=== PATIENT | male | born 1945 | race Caucasian/White ===

== ENCOUNTER → 2021-04-19 10:00 | Outpatient (CLI) | payer MEDICARE, SELFPAY ==
--- NOTE | ~2021-04-19 | XR_ITS ---
EXAMINATION: XR shoulder RT min 2V, XR humerus RT EXAM DATE: 04/19/2021 10:43 INDICATION: Pain in right shoulder TECHNIQUE: The following right shoulder projections obtained: frontal projection with internal rotati on, frontal projection with external rotation, Grashey, and axillary (4+ views). 2 orthogonal projec tions right humerus. There are no prior studies for comparison. FINDINGS: No evidence of right shoulder rotator cuff calcific tendinosis. There is moderate to sev ere glenohumeral joint, mild to moderate acromioclavicular joint primary osteoarthritis. There are no acute fractures or dislocations identified. There is no subcutaneous gas. The soft tissue is unrem arkable. There are no radiopaque foreign bodies. IMPRESSION: 1. Right humeral, shoulder exam without acute osseous findings. 2. 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 Reviewed, dictated and finalized at location . TYPE MECHANIC IMPRESSION: 1. Right humeral, shoulder exam without acute osseous findings. 2. 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
--- NOTE | ~2021-04-19 | XR_ITS ---
[id number] DATE: 04/19/2021 10:43 INDICATION: Right pleuritic chest pain TECHNIQUE: PA chest. 3 views of the right ribs. COMPARISON: None FINDINGS: There is diffuse osteopenia. There is severe osteoarthritic change at the right glenohumeral joint with evidence of rotator cuff a trophy. Osteoarthritic changes also apparently present at the minimally imaged left glenohumeral join t. There is a minimally displaced linear fracture through the anterolateral aspect of the right fourth r ib. No other definite rib fractures identified. Normal heart size. Aortic arch calcification. There is old pulmonary granulomatous disease. No pulmon rosemary infiltrate or consolidation, pleural effusion or pulmonary vascular congestion or pneumothorax is detected. IMPRESSION: No displaced linear fracture through the anterolateral right fourth rib Osteopenia Severe osteoarthritis at right glenohumeral joint, probable left glenohumeral osteoarthritis Right rotator cuff atrophy Reviewed, dictated and finalized at [facility]. Reviewed, dictated and finalized at location [facility]. [employer] IMPRESSION: No displaced linear fracture through the anterolateral right fourth rib Osteopenia Severe osteoarthritis at right glenohumeral joint, probable left glenohumeral o steoarthritis Right rotator cuff atrophy
== END ==
PROVIDERS: PCP Family Medicine; Visit Provider Physician Assistant Medical
DX: R07.81 Pleurodynia (principal); M19.011 Primary osteoarthritis, right shoulder
CPT/HCPCS: 71101; 73030; 73060

== ENCOUNTER 2023-03-06 09:09 | Outpatient (CLI) | payer MEDICARE, SELFPAY ==
--- NOTE | 2023-03-15 20:01 | WPDSLEEPSTUD ---
Sleep Study Date of Study: 03/06/23 Ordering Provider: Alfa Luz MD Interpreting Physician: Viji Estrada MD Sleep Study Type: Split Polysomnogram Height: 1.68 m Weight: 113.398 kg Body Mass Index: 40.3 Neck Circumference (inches): 16.5 [place] Bottom: 6 Reason for Sleep Study Obstructive sleep apnea, has used CPAP since 1998; restless sleep with frequent awakenings at night, * 03/15/1999- basic sleep study with an apnea hypopnea index of 72.5 and desaturation to 72%. Sleep History Mainor Dukes Jr is a 77-year-old man with obstructive sleep apnea on CPAP for years. He used PAP up until the night of this study. He occasionally wakes at night with heartburn, belching or coughing.??He frequently snores, and frequently snores loudly enough that others complain. He occasionally has trouble sleeping when he has a cold. He rarely wakes up gasping for breath during the night. He frequently has breathing problems at night. He occasionally sweats excessively at night. He rarely notices his heart pounding or beating irregularly during the night. He occasionally falls asleep during the day. He rarely falls asleep involuntarily, rarely falls asleep while driving. He never experiences loss of muscle tone with strong emotion. He never has daytime difficulty at work due to excessive sleepiness. He never feels paralyzed on waking or falling asleep. He never experiences vivid dreams upon waking or falling asleep. He never feels afraid of going to sleep. He rarely has nightmares. He occasional recalls his dreams. He occasionally has thoughts racing through his mind. He rarely feels sad or depressed. He occasionally feels anxiety. He frequently notices parts of his body jerk. He frequently kicks during the night. He occasionally feels crawling or aching feelings in his legs. He frequently feels leg pain at night. He rarely has morning jaw pain, never grinds his teeth at night. He never feels bothered by pain during the day, rarely awakened by pain during the night. He occasionally wakes up feeling stiff in the morning, and he occasionally wakes feeling sore or achy. He occasionally awakens with pain in his neck, spine, or joints. Normal bedtime is between 11:00 p.m. and midnight, falling asleep within 15 minute, typically waking up between 4 and 5 times during the night to go to the bathroom and get a sip of water. He wakes the morning by 8:00 a.m.. He keeps the summer schedule on weekends, may sleep 1 extra hour. He estimates getting between 5 and 6 hours of sleep at night. He takes an occasional nap in the day, and may feel refreshed afterwards following a 10-15 minute nap. Habits:??Tobacco: former smoker, quit 20 years ago Caffeine: he drinks coffee in the mornings. 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 HTN (hypertension), benign MRSA (methicillin resistant Staphylococcus aureus) septicemia Obesity (BMI 30-39.9) Obstructive sleep apnea Septic arthritis of knee Septic arthritis of shoulder, right Surgical History Surgical History History of cataract extraction (~2004) Hx of cholecystectomy (~1979) Family History Family History Father Thyroid dysfunction Mother Hypertension Thyroid dysfunction Social History Social History Smoking status: Former smoker Smoking end date: 04/02/02 Alcohol intake: current Lack of Transportation: No Lack of Food: Never True Current Housing: I Have Housing Concerned About Future Housing: No Difficulty Paying Gas/Electric Bills: No Difficulty Paying for Meds: No Currently Unemployed: No Education: High School Diploma/GED Difficulty w/ Childcare or Family Care: No
[2023-03-15 20:13] VITALS: BMI 40.3
== END 2023-03-07 07:37 | disposition home or self-care (01) ==
LOC: ANHCSM 09:11
PROVIDERS: PCP Family Medicine; Visit Provider Family Medicine
DX: G47.33 Obstructive sleep apnea (adult) (pediatric) (principal)
CPT/HCPCS: 95811

== ENCOUNTER 2023-10-31 15:18 | Outpatient (CLI) | payer MEDICARE, SELFPAY ==
--- NOTE | 2023-10-31 15:23 | ECHO_ITS ---
Patient Info Name: Mainor Dukes Age: 78 years : 1945 Gender: Male Ht: 68 in Wt: 222 lbs BSA: 2.23 m2 HR: 87 bpm BP: 149 / 85 mmHg Technical Quality: Fair Exam Date: 10/31/2023 3:41 PM Exam Location: [facility] Patient Status: Outpatient Admit Date: 10/31/2023 Staff Ordering Physician: Alfa Luz MD Seed Sorter: John Lucas RDCS Attending Provider: Alfa Luz MD Referring Physician: Sukh MAYES; Exam Type: CA echo doppler color flow Study Info Indications R01.1 - Cardiac murmur, unspecified Complete two-dimensional, color flow and Doppler transthoracic echocardiogram is performed. Summary 1. Complete two-dimensional, color flow and Doppler transthoracic echocardiogram is performed. 2. Left ventricular chamber dimension is normal. 3. Left ventricular systolic function is normal, estimated at 65-70%. 4. The left ventricular diastolic function is grade I diastolic dysfunction. 5. E/e' 11 is mildly elevated. 6. Left atrial chamber dimension is mildly enlarged. 7. There is mild aortic valve sclerosis. 8. There is mild mitral valve regurgitation. 9. No pulmonary hypertension, estimated pulmonary arterial systolic pressure is 16 mmHg. Left Ventricle E/e' 11 is mildly elevated. Left ventricular chamber dimension is normal. Left ventricular systolic function is normal, estimated at 65-70%. The left ventricular diastolic function is grade I diastolic dysfunction. Right Ventricle Right ventricular systolic function is normal and with normal TAPSE 2.0 cm. Right ventricular chamber dimension is normal. Left Atria Left atrial chamber dimension is mildly enlarged. Right Atria Right atrial chamber dimension is normal. Aortic Valve The aortic valve is trileaflet. There is mild aortic valve sclerosis. There is no aortic valve stenosis. There is no aortic valve regurgitation. Pulmonic Valve There is no pulmonic regurgitation. Mitral Valve There is no mitral valve stenosis. There is mild mitral valve regurgitation. Tricuspid Valve There is no tricuspid valve regurgitation. No pulmonary hypertension, estimated pulmonary arterial systolic pressure is 16 mmHg. Pericardium/Pleural There is no pericardial effusion. Inferior Vena Cava Normal inferior vena cava with >50% collapse upon inspiration consistent with normal right atrial pressure, 5 mmHg. Aorta The aortic root size at the sinus of Valsalva is normal. Left Ventricular Outflow Tract Name Value Normal LVOT 2D LVOT Diameter 2.1 cm LVOT Doppler LVOT Peak Gradient 6 mmHg LVOT Mean Gradient 3 mmHg LVOT VTI 21 cm LVOT VTI/AV VTI Ratio 0.8 LVOT Stroke Volume 72 ml LVOT CO 5.4 l/min LVOT CI 2.4 l/min/m2 Pulmonic Valve Name Value Normal PV Doppler
== END 2023-10-31 15:19 | disposition home or self-care (01) ==
LOC: ANHCARD 15:20
PROVIDERS: PCP Family Medicine; Visit Provider Family Medicine
DX: R01.1 Cardiac murmur, unspecified (principal); I51.89 Other ill-defined heart diseases; I35.8 Other nonrheumatic aortic valve disorders; I34.0 Nonrheumatic mitral (valve) insufficiency
CPT/HCPCS: 93306